=== PATIENT | female | born 1990 | race Caucasian/White ===

== ENCOUNTER 2016-09-12 19:32 | Observation (INO) ==
--- NOTE | 2016-09-12 22:47 | PROVIDER DOCUMENTATION ---
This chart was entered by Johny Magallanes Scribe, acting as scribe for Zoie Mark Jr, MD. HPI-General Adult - General Chief Complaint: Extremity Pain Stated Complaint: EXTREMITY PAIN Time Seen by Provider: 09/12/16 21:27 Source: patient Allergies/Adverse Reactions: Patient Allergies Allergy/AdvReac Type Severity Reaction Status Date / Time No Known Allergies Allergy Verified 09/12/16 21:35 Home Medications: Home Medication List Medication Instructions Recorded Confirmed Last Taken Type Levothyroxine Sodium [Synthroid] 112 mcg 09/12/16 Unknown History Pantoprazole [Protonix] 40 mg PO DAILY 09/12/16 09/12/16 Unknown History - History of Present Illness -Gen Adult Nature of Presenting Problems: 26 yo F presents to the ER with complaint of pain and redness in her L arm. Pt had an iron infusion 3 days ago at [facility] in [place]. Pt states it started as a small knot above the IV site and has now spread down her arm. Pt states she can't feel her arm and fingers. She used a hot rag and had no relief. Location of Pain/Injury: reports: upper extremity (R arm) Pain Radiation: reports: no radiation Quality of Pain: reports: aching Severity: reports: mild Onset/Duration: reports: 3 days ago Timing: reports: still present Associated Symptoms: reports: arm pain, other (redness, arm swelling) Review of Systems - Adult - REVIEW OF SYSTEMS - ADULT Constitutional: denies: chills, fever Cardiovascular: denies: chest pain, palpitations Integumentary: reports: see HPI, other (redness, swelling) Hematologic/Lymphatic: reports: no symptoms reported Past History - Adult - PAST MEDICAL HISTORY-ADULT Review of Records: reports: Old Records Reviewed, Nursing Assessment Review, Medications Reviewed, Social history reviewed & non-contributory. Major Childhood Illnesses: reports: denies history Cardiovascular: reports: denies history Respiratory: reports: denies history Gastrointestinal: reports: denies history Obstetrical/Gynecological: reports: denies history Genitourinary: reports: denies history Musculoskeletal: reports: denies history Neurological: reports: denies history Endocrine/Immune: reports: denies history Other Conditions: reports: denies history - PRIOR SURGERIES/PROCEDURES Surgical/Procedure History: reports: - PRIOR HOSPITALIZATIONS Prior Hospitalizations: reports: for similar symptoms - IMMUNIZATION STATUS Childhood Immunizations: See Nurse Assessment Flu Vaccine: See Nurse Assessment - FAMILY HISTORY Family History: reviewed, not pertinent Physical Exam-General - PHYSICAL EXAM-ADULT Initial Vital Signs Reviewed: Yes - CONSTITUTIONAL General Appearance: appears well, alert, no apparent distress - NECK Neck: non-tender, full range of motion, supple - RESPIRATORY Respiratory: chest non-tender, lungs clear - CARDIOVASCULAR Cardiovascular: normal peripheral pulses, regular rate, rhythm - GASTROINTESTINAL (ABDOMEN) Abdominal Exam: normal bowel sounds, non tender, soft - MUSCULOSKELETAL Extremity: erythema, swelling, tenderness, other (painful ROM) - SKIN Integumentary: normal turgor, warm/dry Progress - PLAN OF CARE/RESULTS Progress/Plan/Lab Results: Vital Signs - 8 hr 09/12/16 19:42 Temperature 98.9 F Pulse Rate 89 Respiratory Rate 18 Blood Pressure 144/85 - CONSULTS/PCP/HOSPITALIST Notification #1 *Consult/PCP/Hospitalist*: Dr. Brown Time Discussed: 22:24 Consult Disposition: Admit, other (Admit. Notify Ortho for evaluation.) Departure - Departure Date of Disposition Decision: 09/12/16 Time of Disposition Decision: 22:26 DIAGNOSIS: Iron and its compounds causing adverse effect in therapeutic use Qualifiers: Encounter type: initial encounter Qualified Code(s): T45.4X5A - Adverse effect of iron and its compounds, initial encounter Disposition: ADMITTED INPATIENT 09 Certified Medical Emergency: Emergent Condition: Good Referrals and Follow-Ups: None,PCP [Primary Care Provider] - - Critical Care Note This patient required my direct & personal management of CC.: No This chart was documented by the indicated scribe, (Johny Magallanes Scribe) and accurately reflects the services I performed and decisions made by me, Zoie Mark Jr, MD, as attested by the provider's signature.
[2016-09-12] MEDS ORDERED: ZOFRAN IV PRN (22:48)
[2016-09-12 23:04] LABS: BASO% 0.7 % (0.0-0.8); EOS# 0.09 X1000 (0.0-0.7); EOS% 1.1 % (0.0-10.0); HEMOGLOBIN 8.5 g/dL (12.0-16.0); IMM GRAN# 0.02 X1000 (0.0-0.04); IMM GRAN% 0.2 % (0.0-0.5); LYMPH# 2.36 X1000 (1.2-3.4); LYMPH% 28.1 % (20.5-51.1); MANUAL DIFF NEEDED? NO; MCH 18.8 PG (27-31); MCHC 28.3 g/dL (33-37); MCV 66.2 FL (81-99); MONO# 0.51 X1000 (0.11-0.59); MONO% 6.1 % (1.7-9.3); MPV 8.1 FL (7.4-10.4); NEUT% 63.8 % (42.2-75.2); PLT 397 X1000 (130-400); RBC 4.53 XMIL (4.2-5.4)
[2016-09-12 23:19] LABS: AGAP 11; ALBUMIN 3.8 g/dL (3.5-5.0); ALKALINE PHOSPHATASE 66 U/L (32-104); BUN 11 mg/dL (8-22); CALCIUM 9.1 mg/dL (8.8-10.2); CHLORIDE 106 mmol/L (98-107); COSMO 275; GOT 11 U/L (10-30); GPT 9 U/L (10-36); POTASSIUM 3.7 mmol/L (3.5-5.1); SODIUM 138 mmol/L (136-145); TCO2 21 mmol/L (25-35); TOTAL PROTEIN 7.6 g/dL (6.3-8.3)
[2016-09-12 23:20] LABS: INR 1.04 (0.86-1.15); PROTIME 13.9 Seconds (12.1-15.5)
[2016-09-12] MEDS: MORPHINE IV PRN (23:47)
[2016-09-13 00:03] LABS: SED RATE 32 mm/hr (0-20)
[2016-09-13] MEDS: MORPHINE IV PRN ×7 (01:58→17:42)
[2016-09-13] MEDS ORDERED: SYNTHROID PO SCH ×2 (09:00→18:23)
[2016-09-13] MEDS ORDERED: ROCEPHIN 1 GM/NS 1 GM/50 ML IVPB IV SCH (12:45)
[2016-09-13] MEDS: PROTONIX PO SCH (15:44)
--- NOTE | 2016-09-13 15:48 | Extremity Venous Study ---
EXAM: Venous U/S Left Arm INDICATION: Pain and Swelling of left arm TECHNIQUE: COMPARISON: None. FINDINGS: There is normal Doppler flow, compressibility, and augmentation involving the left internal jugular vein, subclavian vein, axillary vein, and brachial vein. There is thrombus in the left cephalic vein extending from the upper arm to the cubital fossa. The cephalic vein is noncompressible. IMPRESSION: 1.Superficial thrombus in the left cephalic vein. 2.No evidence of deep venous thrombosis. Electronically signed by Sotero Mclaughlin 09/13/2016 3:46 PM
[2016-09-13] MEDS: NS 1,000 ML IV SCH ×2 (17:42→17:43)
[2016-09-13] MEDS: NORCO-10 PO PRN ×2 (20:02→23:49)
[2016-09-13] MEDS ORDERED: SEROQUEL PO SCH (21:00)
[2016-09-14] MEDS: NORCO-10 PO PRN ×2 (06:02→11:39)
[2016-09-14] MEDS: PROTONIX PO SCH (06:02)
[2016-09-14 06:41] LABS: HEMATOCRIT 30.7 % (37.0-47.0); HEMOGLOBIN 8.4 g/dL (12.0-16.0); MCH 18.5 PG (27-31); MCHC 27.4 g/dL (33-37); MCV 67.6 FL (81-99); MPV 8.4 FL (7.4-10.4); RBC 4.54 XMIL (4.2-5.4)
[2016-09-14] MEDS ORDERED: SYNTHROID PO SCH ×2 (07:00)
[2016-09-14 15:15] VITALS: BP 96/64
--- NOTE | 2016-09-14 18:12 | CONSULTATION ---
DATE OF CONSULTATION: 09/13/2016 CHIEF COMPLAINT: Left arm infiltration. HISTORY OF PRESENT ILLNESS: Ms. Anaya is a 26-year-old female who is experiencing left arm pain and swelling after an iron infusion that she received 3 days ago at [facility]. She states that she noticed swelling immediately at the time of the infusion, for which they stopped the infusion. On the day of admission, she went to the ER due to swelling and pain, and we were asked to further evaluate. After speaking with her, she states that the swelling has decreased, but it is still very painful. Past medical history, past surgical history, medicines, and allergies: For all of those, see admission history and physical. REVIEW OF SYSTEMS: A 10-point review of systems was performed with the patient, and was negative, other than what was stated in the HPI above. PHYSICAL EXAMINATION: General: She is a well-developed, well-nourished female. She is in no acute distress. She is alert, oriented, and cooperative with the exam. HEENT: Head is atraumatic, normocephalic. Neck: Supple. Heart: Regular rate and rhythm. Lungs: Clear to auscultation bilaterally. Abdomen: Round, nondistended. Bowel sounds are present. Neurological: She discerned soft touch to the affected extremity. Musculoskeletal: Left arm: There is erythema and swelling at the antecubital fossa of the left elbow, and there is a palpable nodular cord proximal to the antecubital fossa. She is tender with palpation, but she does have good range of motion, with discomfort. She has 2+ radial pulses. She has good capillary refill. She is able to discern soft touch to all 5 fingers of her left arm. IMPRESSION: Left arm infiltration. PLAN: We do not believe that the inflammation is involving the joint space, and we do not believe that there is any indication for surgery at this time. She is neurovascularly intact. She has good range of motion. Unless there are any changes clinically, there is no need for surgical intervention from an orthopedic standpoint at this time. Dictated by JOEY Arana for Benjy Ortega MD cc: JOEY Arana MD
--- NOTE | 2016-09-15 01:54 | HISTORY AND PHYSICAL ---
CHIEF COMPLAINT: Left arm pain. HISTORY OF PRESENT ILLNESS: This is a 26-year-old female who presented to the emergency room complaining of left upper arm pain,swelling and redness. She reports receiving an iron infusion at [facility] 3 days prior to this which infiltrated leaving a small knot at the site shortly after infiltration. Over the last 12-15 hours she has had an increase in swelling, redness and pain and she states that she has decreased sensation in the lower arm and fingers. She describes this pain as an aching type pain with no other accompanying symptoms. 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 She denies any fevers, chills, nausea, vomiting, chest pain, or palpitations. She was noted to have essentially normal labs. She denies any prior difficulty with iron infusions. PAST MEDICAL HISTORY: Anxiety, depression. PAST SURGICAL HISTORY: Denies. SOCIAL HISTORY: She denies alcohol, tobacco, or illicit drug use. ALLERGIES: No known drug allergies. HOME MEDICATIONS: A list will be obtained. PHYSICAL EXAMINATION: GENERAL: This is a 26-year-old obese female who is sitting in the bed in no distress. VITAL SIGNS: Blood pressure is 146/90 with a heart rate of 67, respirations are 18, temperature is 97.9 degrees with room air saturations 100%. HEENT: Head is normocephalic, atraumatic. Pupils equal, round, react to light. EOMs are intact. Sclerae are anicteric. Mucous membranes are moist. NECK: Supple. Trachea midline. CARDIOVASCULAR: Regular rate and rhythm. S1 and S2 appreciated. PULMONARY: Breath sounds are clear. No increased work of breathing noted. GASTROINTESTINAL: Abdomen is large, soft, nondistended, nontender with bowel sounds in all 4 quadrants. BACK: No CVAT. No spine tenderness. MUSCULOSKELETAL: Good range of motion to all joints except left arm is limited to pain. EXTREMITIES: No clubbing, cyanosis, or edema to right arm or bilateral lower extremities. Left arm is noted to be edematous. DIAGNOSTICS: WBC is 8.4, with a hemoglobin of 8.5, hematocrit 30 and platelets of 397,000. Sedimentation rate is 32. Sodium is 138, potassium 3.7, BUN 11, creatinine 0.7 with a glucose of 100. ASSESSMENT AND PLAN: 1. Cellulitis, left arm. This is most likely due to infiltration of iron as symptoms began shortly after receiving an iron infusion. We will continue to monitor. We will start antibiotics. We will call Orthopedics to evaluate as the patient says that she has decreased sensation to her lower arm and hand. Will continue neurovascular checks. 2. Hypothyroid. 3. History of iron deficiency anemia. 4. Anxiety and depression. 5. We will identify her home medications and continue as appropriate. 6. We will obtain a venous ultrasound of the left arm. 7. Further treatment pending hospital course. Dictated by ERNESTO Dunn for Alfred Brown MD cc: ERNESTO Dunn MD MTDD
--- NOTE | 2016-09-15 12:18 | DISCHARGE SUMMARY ---
ADMISSION DATE: 09/12/2016 DISCHARGE DATE: 09/14/2016 DIAGNOSIS: Superficial thrombus in the left cephalic vein extending from the upper arm to the cubital fossa. The cephalic vein is noncompressible. REPORT: Venous Doppler of the left arm revealed thrombus in the left cephalic vein extending from the upper arm to the cubital fossa. Cephalic vein is noncompressible. No evidence of deep vein thrombosis. HOSPITAL COURSE: Ms. Anaya presented to the emergency room complaining of pain and swelling to her left arm. She had recently been admitted at [facility] and, 3 days prior to presenting to our ER, had an iron infusion which infiltrated. Over 24 hours, she developed redness, a knot, and then developed increasing warmth and pain. Venous Doppler was performed which revealed a left cephalic vein thrombus. Her arm was elevated on pillows on first admission and over about the first 8 hours she stated that the swelling went down significantly. She did have some decreased sensation to her hand and fingers, but this has resolved with the swelling resolution. She had good pulses, capillary refill, and movement. DISCHARGE PHYSICAL EXAMINATION: Cardiovascular: Regular rate and rhythm, S1 and S2 appreciated. Pulmonary: Breath sounds are clear, with no increased work of breathing noted. Gastrointestinal: Abdomen is soft, nontender, and nondistended, with bowel sounds in all 4 quadrants. Extremities: No clubbing, cyanosis, or edema to right upper extremity and bilateral lower extremities. Left lower extremity is edematous. DISCHARGE MEDICATIONS: 1. Synthroid 125 mcg daily. 2. Seroquel 50 mg at bedtime. 3. Xarelto 15 mg daily for 42 days, then discontinue. As this is not a deep vein thrombosis, it is superficial, we will give Xarelto at a lower dose of 15 mg daily for 42 days and then discontinue. She has been given the name and number of ERNESTO Snowden, at the [facility]. She will also be given the number for the [facility] as well as assistance to find a primary care physician. She has been instructed by myself as well as the nurses on the importance of following up on this to assure that she does have good circulation in her arm. She does voice understanding. She was instructed to call to be seen sooner or return to the emergency room if her arm is discolored, if it is cool, if she has a decrease in movement, or if she gets chest pain or shortness of breath, or any other questions or concerns that she may have. She is being discharged home in stable condition. TIME SPENT: This is a greater than 30-minute discharge. Dictated by ERNESTO Dunn for Alfred Brown MD cc: ERNESTO Dunn MD Anna M. Dumas, CRNP
== END 2016-09-14 17:05 | disposition home or self-care (01) ==
LOC: P.MEDSURG 19:32 → P.ED 19:32
PROVIDERS: ATTEND Family Medicine